=== PATIENT | female | born 1965 | race Caucasian/White ===

== ENCOUNTER 2023-02-07 09:58 | Outpatient (CLI) | payer BC, SELFPAY ==
--- NOTE | ~2023-02-07 | XR_ITS ---
Clinical Indication: Cough, Covid 19 positive PA and lateral views of the chest: Comparison: None Findings: The lungs are clear, without evidence of focal consolidation or pleural effusion. Cardiome diastinal silhouette is within normal limits. Bones and soft tissues are unremarkable. Impression: Normal chest. Reviewed, dictated and finalized at [facility]. DENTIAL TREATMENT COUNSELOR Impression: Normal chest.
== END 2023-02-07 09:59 | disposition home or self-care (01) ==
PROVIDERS: PCP Family Medicine; Visit Provider Physician Assistant Medical
DX: R05.9 Cough, unspecified (principal)
CPT/HCPCS: 71046

== ENCOUNTER 2025-01-06 10:01 | Outpatient (CLI) | payer BC, SELFPAY ==
--- NOTE | ~2025-01-06 | MM_ITS ---
EXAMINATION: MM screening chrissie BI w patricia HISTORY: Screening TECHNIQUE: Craniocaudal and mediolateral oblique 3-D tomosynthesis images were obtained and synthetic 2-D images were generated. CAD analysis was submitted and interpreted. COMPARISON: No prior mammogram is available for comparison at this institution. BREAST PARENCHYMAL COMPOSITION: There are scattered areas of fibroglandular density. FINDINGS: There is no evidence of suspicious mass, calcification, or architectural distortion in either breast to suggest malignancy. IMPRESSION: 1. No mammographic evidence of malignancy. Recommend routine screening mammography in one year. BI-RADS Category 1: Negative Reviewed, dictated and finalized at location Q. IMPRESSION: 1. No mammographic evidence of malignancy. Recommend routine screening mammogra phy in one year. BI-RADS Category 1: Negative
--- OUTSIDE RECORDS SUMMARY | 2025-01-06 11:33 | XMS_ITS | Clinical Summary ---
Author Organization [facility] Ciera Hernandez [facility] Address [address] [facility] [address] [place] [address] Care Team Providers Care Tie Loader Name Role Phone Shaunna Mojica MD Primary Care Provider [phone] Rachael Miramontes MD Unavailable [phone] Allergies Active Allergy Reactions Criticality Noted Date Comments Covid-19 Vacc,Mrna(Pfizer)(Pf) Rash Medium 03/06/2021 03/24/2020 Rosuvastatin Other (See comments) Low 12/09/2015 Gemfibrozil Other (See comments) Low 12/09/2015 Latex Unknown 08/04/2013 Atorvastatin Muscle pain Medium 12/09/2015 Sulfa (Sulfonamide Antibiotics) Unknown 08/04/2013 Dulaglutide Stomach upset,Nausea only Low 03/05/2022 Medications fluticasone-salmet joanna (ADVAIR DISKUS) 250-50 mcg/dose diskus inhaler 1 puff twice day Active albuterol (PROVENTIL,VENTOLI N) 2.5 mg /3 mL (0.083 %) nebulizer solution 1 8 Active fexofenadine (NITO) 180 mg tablet Active aspirin 81 mg tablet Active atenolol (TENORMIN) 25 mg tablet daily. Active multivitamin tabletIndications: Vitamin Deficiency Prevention daily. Active b complex vitamins (VITAMINS B COMPLEX) capsule daily. Act maday mometasone (NASONEX) 50 mcg/actuation nasal spray Administer 1 spray into each nostril. 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 Significant weight gain, so may benefit from GLP-1 agonist therapy Non-toxic multinodular goiter 12/08/2015 Assessment & Plan (03/08/2021 2:13 PM LONGWALL FOREMAN): Follow-up thyroid ultrasound earlier today, but no report as of the time of this visit. Nodule seems a little more prominent on examination, but nontender Assessment & Plan (03/09/2020 11:11 AM LONGWALL FOREMAN): Clinically stable, euthyroid. Assessment & Plan (11/21/2018 9:06 AM CDT): The patient has nontoxic multinodular goiter. She denies any obstructive symptoms. Thyroid ultrasound on 10/29/2018 indicated no changes in the right lower lobe nodule, the nodule in the isthmus, or the left upper lobe nodule. Follow-up ultrasound in 1 year was recommended. She states her thyroid function tests were normal in June 2018. Labs are not available for review. She appears clinically euthyroid. Recommend that she follow up in [address] Miramontes. Will repeat ultrasound in 1 year as recommended. She will call sooner with any questions or concerns. Assessment & Plan (10/30/2017 4:37 PM CDT): Stable nodules, clinically euthyroid. Need results of recent lab work Obstructive sleep apnea syndrome 12/08/2015 Immunizations Immunization Administration Dates Next Due Influenza, Trivalent, Preservative Free, Intramu scular 03/25/2015,01/21/2015 Pfizer SARS-CoV-2 Monovalent Vaccination (12+ Yrs) PURPLE 03/24/2020 Surgical History Surgery Date Site/Laterality Comments IR FINE NEEDLE ASPIRATION W IMAGE GUIDANCE 12/16/2015 N/A SECTION TONSILECTOMY, ADENOIDECTOMY, BILATERAL MYRINGOTOMY AND TUBES HYSTERECTOMY Medical History Medical History Date Comments Thyroid nodule Covid-19 11/2019 URI Sx Family History Medical History Relation Name Comments Thyroid disease Maternal Grandmother Cancer Mother Diabetes Sister Thyroid disease Sister Relation Name Status Comments Maternal Grandmother Mother Sister Social History Tobacco Use Types Packs/Day Years Used Date Smoking Tobacco: Former Smokeless Tobacco: Never Tobacco Cessation:Counseling Given: Not Answered Comments Unknown Sex and Gender Information Value Date Recorded Sex Assigned at Not on file Legal Sex Female 4:59 AM LONGWALL FOREMAN Gender Identity Female 11/19/2018 11:49 AM CDT Sexual Orientation Straight 11/19/2018 11 :49 AM CDT Obstetrics History Last Filed Vital Signs Vital Sign Reading Time Taken Comments Blood Pressure 122/76 04/24/2022 8:58 AM LONGWALL FOREMAN Pulse 75 04/24/2022 8:58 AM LONGWALL FOREMAN Temperature 36.6 C (97.8 F) 04/24/2022 8:58 AM LONGWALL FOREMAN Respiratory Rate - - Oxygen Saturation - - Inhaled Oxygen Concentration - - Weight 131.4 kg (289 lb 9.6 oz) 04/24/2022 8:58 AM LONGWALL FOREMAN Height 167.6 cm (5' 6) 04/24/2022 8:58 AM LONGWALL FOREMAN Body Mass Index 46.74 04/24/2022 8:58 AM LONGWALL FOREMAN Plan of Treatment Health Maintenance Due Date Last Done Comments Breast Cancer Screening-Mammogram 1965 Colon Cancer Screening-Colonoscopy 1965 Depression Screening 1965 Hepatitis C Screening 1965 DTaP/Tdap/Td Vaccine (1 - Tdap) 1976 Hepatitis B Screening 08/18/1983 Regular Well Visit/Exam 18-64 08/18/1983 Pneumococcal vaccine <65 (1 of 2 - PCV) 1984 Zoster Vaccine (1 of 2) 08/18/2015 Covid-19 Vaccine (2 - season) 2024 Influenza Vaccine (#1) 2024 03/25/2015, 2014 Insurance [facility] Care Teams Tie Loader Relationship Specialty Start Date End Date Shaunna Mojica MD PCP - General 12/27/16 Rachael Miramontes MD Referring Physician Endocrinology Diabetes & Metabolism 03/09/20
--- OUTSIDE RECORDS SUMMARY | 2025-01-06 11:33 | XMS_ITS | Clinical Summary ---
Author Organization [facility] [employer] Address [address] [place] [address] Care Team Providers Care Principal Software Engineer Name Role Phone Shaunna Mojica MD Primary Care Provider [phone] Source Comments [facility] [employer],non-owned Affiliates and Associated Physician Practices is amultiple site organization consisting of ambulatory clinics and hospital sitesin [place], [place], [place] and [place]. This disclosure is being madepursuant to the Care Everywhere program and may not contain all information available regarding this patient. Last updated 17.[facility] [employer] [facility] Allergies Active Allergy Reactions Criticality Noted Date Comments Latex 04/05/2016 Sulfa Drugs 04/05/2016 Medications * Be aware that medications may not be up to date on this document. Alwaysverify current medications with the patient. METFORMIN HCL ER, MOD, PO Active Ezetimibe (ZETIA PO) Active ATENOLOL PO Active Multiple Vitamins-Minerals (MULTIVITAMIN ADULT PO) Active Lansoprazole (PREVACID PO) Active Fluticasone-Salmeter ol (ADVAIR DISKUS IN) Active mometasone (NASONEX) 50 MCG/ACT nasal spray [place] 1 [place] into each nostril 2 times daily Active B Complex Vitamins (VITAMIN B COMPLEX PO) Active promethazine (PHENERGAN) 25 MG tabletIndications:In fectious gastroenteritis Take 1 Tab by mouth every 6 hours as needed for Nausea/Vomi ting 20 Tab 7 Active Loperamide (IMODIUM A-D) 2 MG tabletIndications:In fectious gastroenteritis 2 tabs PO x1, then 1 tab PO after each loose stool; Max: 4 tabs/24h 20 Tab 7 Active Active Problems No known active problems Social History Tobacco Use Types Packs/Day Years Used Date Smoking Tobacco: Never Comments Unknown Sex and Gender Information Value Date Recorded Sex Assigned at Not on file Legal Sex Female 10:54 AM SHRINK PIT OPERATOR Gender Identity Not on file Sexual Orientation Not on file Last Filed Vital Signs Vital Sign Reading Time Taken Comments Blood Pressure 122/70 04/05/2016 11:52 AM SHRINK PIT OPERATOR Pulse 89 04/05/2016 11:52 AM SHRINK PIT OPERATOR Temperature 37.2 C (98.9 F) 04/05/2016 11:52 AM SHRINK PIT OPERATOR Respiratory Rate 16 04/05/2016 11:52 AM SHRINK PIT OPERATOR Oxygen Saturation 95% 04/05/2016 11:52 AM SHRINK PIT OPERATOR Inhaled Oxygen Concentration - - Weight 127 kg (280 lb) 04/05/2016 11:52 AM SHRINK PIT OPERATOR Height 167.6 cm (5' 6) 04/05/2016 11:52 AM SHRINK PIT OPERATOR Body Mass Index 45.19 04/05/2016 11:52 AM SHRINK PIT OPERATOR Plan of Treatment Health Maintenance Due Date Last Done Comments COLOGUARD (AGES 45-75) - COL ON CA SCREENING 1965 COLON MONITORING 1965 COLONOSCOPY - COLON CA SCREENING 1965 CT COLONOGRAPHY - COLON CA SCREENING 1965 Colorectal Cancer Screening 1965 FIT - COLON CA SCREENING 1965 FLEX SIG - COLON CA SCREENING 1965 LIPID TESTING 1965 MAMMOGRAM 1965 HIV SCREENING 1980 HEPATITIS C SCREENING 08/13/1983 DTAP/TDAP/TD VACCINES (1 - Tdap) 1984 HEPATITIS B VACCINE (1 of 3 - 19+ 3-dose series) 1984 PNEUMOCOCCAL VACCINE 50+ (1 of 1 - PCV) 08/18/2015 ZOSTER VACCINE (1 of 2) 08/18/2015 DEPRESSION SCREENING 03/25/2024 COVID-19 VACCINE ( - 2023-2 5 season) 2024 INFLUENZA VACCINE (#1) 2024 HIB VACCINE Aged Out No longer eligi ble based on patient's age to complete this topic HPV VACCINE Aged Out No longer eligi ble based on patient's age to complete this topic MENINGOCOCCAL (Group B) VACC INE SHARED DECISION-MAKING Aged Out No longer eligibl e based on patient's age to complete this topic MENINGOCOCCAL GROUPS A/C/Y/W VACCINE Aged Out No longer eligible b ased on patient's age to complete this topic Insurance [facility] Care Teams Principal Software Engineer Relationship Specialty Start Date End Date Shaunna Mojica MD [address] [place] [address] PCP - General Family Medicine 04/05/16
== END 2025-01-06 10:02 | disposition home or self-care (01) ==
LOC: ANHFOHIMG 10:02
PROVIDERS: PCP Family Medicine; Visit Provider Student in an Organized Health Care Education/Training Program
DX: Z12.31 Encounter for screening mammogram for malignant neoplasm of breast (principal)
CPT/HCPCS: 77063; 77067

== ENCOUNTER 2025-01-08 13:19 | Outpatient (CLI) | payer BC, SELFPAY ==
--- OUTSIDE RECORDS SUMMARY | 2009-08-31 03:00 | XMS_ITS | Continuity of Care Document ---
Author Organization [facility] Address [address] [place] [address] Phone Care Team Providers Care Biochemical Development Engineer Name Role Phone Castañeda OD, Doc Unavailable Unavailable Procedures Procedure Date Eye Exam & Treatment Refraction Progressive Lens, Plastic Frames Deluxe Tint Photochromatic, Plastic Tax - Medical Eye Exam, New Patient Refraction Advance Directives Directive Yes / No Effective Date File Name No Information Encounters Encounter Description Practice Location Reason(s) For Visit Diagnoses Date Provider Providers Copied on Encounter [facility], [id number] [place] [address] [address], [place], [place], [address], [place] tel:[phone] [facility] No Information [phone] 0 Castañeda OD Doc. [address] , [address], [place], [address], [place]. tel:[phone] [facility], [address] [place] [address] [address], [place], [place], [address], [place] tel:[phone] [facility] No Information 3-200 7 [facility] . [address], [address], [place], [place], [address], [place]. tel:[phone] Referring Provider: Salbador Sloan [address], [place], [address] . tel:[phone] wallace Provider: Martin Beltran, [address] [facility] [address] [facility], [place], [address]. tel:[phone] [facility], [address], [place], [place], [address], tel:[phone] [facility] No Information 7 Quirino Salbador. [address], [place], [place], [address], [place]. tel:[phone] Family History Family Member Type Diagnosis Age At Onset No Information Payers Payer name Insurance type Covered libertarian ID Authorbenjamin chan(s) [facility] [id number] Social History Type Description Quantity Date Captured Comments Sex Female Smoking Status No Information Chief Complaint And Reason For Visit No Information Reason For Referral Reason For Referral No Information History Of Present Illness Encounter Date Complaint History Of Prese nt Illness No Information Functional Status Date Functional Assessmen t No Information Instructions Date Instruction Additional Infor mation No Information Assessments Type Assessment Date No Information Patient Care Teams Name Effective Dates (start - stop) Status Members No Information
--- NOTE | ~2025-01-08 | DEXA_ITS ---
Bone Density Report Name: DARNELL ARTEAGA Age: 59 Sex: Female Ethnicity: White Date of : 1965 Indication: postmenopausal; screening for osteoporosis; height loss; history of glucocorticoids; hysterectomy; Referring Provider: EMILY GRIFFIN Study: Bone densitometry was performed. Exam Date: January 08, 2025 Accession number: [id number] Bone Density: Region BMD T-score Z-score Classification AP Spine(L1-L4) 1.014 -0.3 1.1 Normal Femoral Neck (Left) 0.835 -0.1 1.1 Normal Total Hip (Left) 1.033 0.7 1.7 Normal Femoral Neck (Right) 0.917 0.6 1.9 Normal Total Hip (Right) 1.086 1.2 2.1 Normal Total Hip Mean 1.059 1.0 1.9 Normal World Health Organization criteria for BMD impression classify patients as: Normal (T-score at or above -1.0), Osteopenia (T-score between -1.0 and -2.5), or Osteoporosis (T-score at or below -2.5). 10-year Fracture Risk: FRAX not reported because: All T-scores for Spine Total, Hip Total, Femoral Neck at or above -1.0 Clinical Information Provided by Patient: Has taken Glucocorticoids Has used the following medications: Calcium Has the following medical conditions: Hysterectomy Patient maximum height was 66 Menopause Age: 42 No regular weight bearing exercise Drinks caffeinated beverages Onset of menses at age 15 Number of children 2 Impression: The patient has normal bone mass. The patient has risk factors, including: history of glucocorticoid therapy. Discussion: BONE DENSITY IS ABOVE THE MINIMUM DESIRABLE LEVEL AT ALL SKELETAL SITES TESTED. This patient?s bone mineral density is above the minimum desirable level (T-score -1.0 or better) at all sites measured. The patient should follow a healthful lifestyle (good nutrition with adequate calcium and vitamin D, and appropriate weight-bearing exercise). Follow-Up: Consider repeating this study in 5 years or sooner if there is some new clinical indication. Reported by: PEDRO on 01/08/2025 2:01:00 PM. Reviewed, dictated and finalized at location A.
--- OUTSIDE RECORDS SUMMARY | 2025-01-08 13:26 | XMS_ITS | Clinical Summary ---
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 Allergic to Pfizer vaccine (rash) Assessment & Plan (03/06/2021 1:14 PM REAL ESTATE MARKETING COORDINATOR): 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 Significant weight gain, so may benefit from GLP-1 agonist therapy Non-toxic multinodular goiter 12/08/2015 Assessment & Plan (03/08/2021 2:13 PM REAL ESTATE MARKETING COORDINATOR): Follow-up thyroid ultrasound earlier today, but no report as of the time of this visit. Nodule seems a little more prominent on examination, but nontender Assessment & Plan (03/09/2020 11:11 AM REAL ESTATE MARKETING COORDINATOR): Clinically stable, euthyroid. Assessment & Plan (11/21/2018 [...] on file Legal Sex Female 4:59 AM REAL ESTATE MARKETING COORDINATOR Gender Identity Female 11/19/2018 11:49 AM CDT Sexual Orientation Straight 11/19/2018 11 :49 AM CDT Obstetrics History Last Filed Vital Signs Vital Sign Reading Time Taken Comments Blood Pressure 122/76 04/24/2022 8:58 AM REAL ESTATE MARKETING COORDINATOR Pulse 75 04/24/2022 8:58 AM REAL ESTATE MARKETING COORDINATOR Temperature 36.6 C (97.8 F) 04/24/2022 8:58 AM REAL ESTATE MARKETING COORDINATOR Respiratory Rate - - Oxygen Saturation - - Inhaled Oxygen Concentration - - Weight 131.4 kg (289 lb 9.6 oz) 04/24/2022 8:58 AM REAL ESTATE MARKETING COORDINATOR Height 167.6 cm (5' 6) 04/24/2022 8:58 AM REAL ESTATE MARKETING COORDINATOR Body Mass Index 46.74 04/24/2022 8:58 AM REAL ESTATE MARKETING COORDINATOR Plan of Treatment Health Maintenance Due Date [...] Influenza Vaccine (#1) 2024 03/25/2015, 2014 Insurance [facility] Care Teams Lining Caser Relationship Specialty Start Date End Date Shaunna Mojica MD PCP - General 12/27/16 Rachael Miramontes MD Referring Physician Endocrinology Diabetes & Metabolism 03/09/20
--- OUTSIDE RECORDS SUMMARY | 2025-01-08 13:26 | XMS_ITS | Clinical Summary ---
Author Organization [facility] [employer] Address [address] [place] [address] Care Team Providers Care Entry Level Project Coordinator Name Role Phone Shaunna Mojica MD Primary Care Provider [phone] Source Comments [facility] [employer],non-owned Affiliates and Associated Physician Practices is amultiple site organization consisting of ambulatory clinics and hospital sitesin [place], [place], [place] and [place]. This disclosure is being madepursuant to the Care Everywhere program and may not contain all information available regarding this patient. Last updated 17.[facility] [employer] Allergies Active Allergy Reactions Criticality Noted Date [...] Active mometasone (NASONEX) 50 MCG/ACT nasal spray [place] 1 [place] into each nostril 2 times daily Active [...] on file Legal Sex Female 10:54 AM SYSTEMS PROGRAMMER ANALYST Gender Identity Not on file Sexual Orientation Not on file Last Filed Vital Signs Vital Sign Reading Time Taken Comments Blood Pressure 122/70 04/05/2016 11:52 AM SYSTEMS PROGRAMMER ANALYST Pulse 89 04/05/2016 11:52 AM SYSTEMS PROGRAMMER ANALYST Temperature 37.2 C (98.9 F) 04/05/2016 11:52 AM SYSTEMS PROGRAMMER ANALYST Respiratory Rate 16 04/05/2016 11:52 AM SYSTEMS PROGRAMMER ANALYST Oxygen Saturation 95% 04/05/2016 11:52 AM SYSTEMS PROGRAMMER ANALYST Inhaled Oxygen Concentration - - Weight 127 kg (280 lb) 04/05/2016 11:52 AM SYSTEMS PROGRAMMER ANALYST Height 167.6 cm (5' 6) 04/05/2016 11:52 AM SYSTEMS PROGRAMMER ANALYST Body Mass Index 45.19 04/05/2016 11:52 AM SYSTEMS PROGRAMMER ANALYST Plan of Treatment Health Maintenance Due Date [...] patient's age to complete this topic Insurance [facility] Care Teams Entry Level Project Coordinator Relationship Specialty Start Date End Date Shaunna Mojica MD [address] [place] [address] PCP - General Family Medicine 04/05/16
== END 2025-01-08 13:20 | disposition home or self-care (01) ==
LOC: ANHFOHIMG 13:20
PROVIDERS: PCP Family Medicine; Visit Provider Student in an Organized Health Care Education/Training Program
DX: Z78.0 Asymptomatic menopausal state (principal)
CPT/HCPCS: 77080